=== PATIENT | female | born 1975 | race Caucasian/White ===

== ENCOUNTER 2016-09-29 14:13 | Emergency (ER) | payer OTHER ==
[~2016-09-29 14:13] MED LIST: ACET50TA PO; FOLI1TAB2 PO; IBUP80TA PO; IRON65TA PO; LABE10TAB PO; PRENTAB40 PO; ZANT1TAB PO; ZOLO50TA PO
== END 2016-09-29 16:50 | disposition left against medical advice (07) ==
LOC: M ED 14:13
DX: R10.9 Unspecified abdominal pain (principal); Z53.20 Procedure and treatment not carried out because of patient's decision for unspecified reasons

== ENCOUNTER 2017-01-06 09:00 | Emergency (ER) | payer OTHER ==
[~2017-01-06] VITALS: Ht 170.2 cm; Wt 63.5 kg
[2017-01-06] MEDS ORDERED: NORV5TAB PO (09:09)
[2017-01-06] MEDS ORDERED: PROP10TAB PO (09:10)
[2017-01-06] MEDS ORDERED: IBUPROFEN 600 MG TAB PO ONE (10:15)
[2017-01-06 10:56] VITALS: BP 119/76
[2017-01-06] MEDS ORDERED: VALI5TAB PO (10:56)
[2017-01-06] MEDS ORDERED: NAPR500T PO (10:56)
--- NOTE | 2017-01-06 15:10 | REP ---
RIGHT SHOULDER, THREE VIEWS: HISTORY: Pain. There is no acute fracture or dislocation. The joint spaces are normal in appearance. IMPRESSION: There is no acute fracture or dislocation. Signed by Faisal Ledezma MD 01/06/2017 02:16 P
== END 2017-01-06 11:05 | disposition home or self-care (01) ==
LOC: M ED 10:11
DX: S46.911A Strain of unspecified muscle, fascia and tendon at shoulder and upper arm level, right arm, initial encounter (principal); W18.09XA Striking against other object with subsequent fall, initial encounter; Y92.89 Other specified places as the place of occurrence of the external cause; Y93.89 Activity, other specified; Y99.8 Other external cause status; I10 Essential (primary) hypertension; F41.9 Anxiety disorder, unspecified; Z88.2 Allergy status to sulfonamides; Z88.8 Allergy status to other drugs, medicaments and biological substances; Z79.899 Other long term (current) drug therapy

== ENCOUNTER → 2017-04-09 | Outpatient (CLI) | payer OTHER ==
[~2017-04-09] MED LIST changes: +BENZ200C53 PO; +CEPA5.4L2 MT; +FLON1SPR; -FOLI1TAB2 PO; +FOLI1TAB4 PO; +LOTR52CA PO; +MUCI600T37 PO; +NAPR500T PO; +NORV5TAB PO; +PROP10TAB PO; +PROP40TA PO; +VALI5TAB PO; +ZOLO100T PO
--- NOTE | 2017-04-09 16:52 | REP ---
MAXILLOFACIAL CT WITHOUT CONTRAST: HISTORY: Chronic maxillary sinusitis. There is complete opacification of the left maxillary sinus. There is medial bowing of the left uncinate process. There is partial erosion of the left uncinate process. These findings may be to chronic sinusitis and or a mucocele. Moderate mucosal thickening is present in the left ethmoid and frontal sinuses. Minimal mucosal thickening is present in the right frontal ethmoid, maxillary, and left sphenoid sinuses. The right sphenoid sinus is clear. Mucosal thickening involves the left osteomeatal unit. The right osteomeatal unit is patent. The middle and inferior nasal turbinates are partially paradoxical. 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 There is minimal deviation of the nasal septum to the left anteriorly and to the right posteriorly. The spur is present arising from the left side of the nasal septum. The cribriform plate and medial krishnamurthy of the orbits and optic canals are intact. There is aeration of the anterior clinoid processes. The sphenoid sinus septum inserts into the right internal carotid canal wall. IMPRESSION: Sinus mucosal thickening as described above. Signed by Faisal Ledezma MD 04/09/2017 05:12 P
== END ==
LOC: M RAD 15:25
PROVIDERS: ATTEND Otolaryngology
DX: J32.0 Chronic maxillary sinusitis (principal)

== ENCOUNTER 2017-05-14 08:40 | Emergency (ER) | payer OTHER ==
[~2017-05-14] VITALS: Ht 170.2 cm; Wt 62.6 kg
[~2017-05-14 08:40] MED LIST changes: -BENZ200C53 PO; -CEPA5.4L2 MT; -FLON1SPR; -LOTR52CA PO; -MUCI600T37 PO; -PROP40TA PO; -ZOLO100T PO
[2017-05-14 09:55] LABS: BASO % 0.5 % (0.0-1.0); EOS # 0.2 K/mm3 (0.0-0.50); EOS % 1.9 % (0.0-3.0); LARGE UNSTAINED CELL # 0.1 K/mm3 (0.0-0.4); LARGE UNSTAINED CELL % 1.1 % (0.0-4.0); LYMPH # 1.6 K/mm3 (1.5-4.5); MEAN CORPUSCULAR HEMOGLOBIN 33.8 pg (27.0-33.0); MEAN CORPUSCULAR HGB CONC 34.7 g/dl (32.0-36.5); MEAN CORPUSCULAR VOLUME 97.4 fl (80.0-96.0); MONO # 0.4 K/mm3 (0.0-0.8); MONO % 4.8 % (0.0-5.0); NEUTROPHILS # 5.6 K/mm3 (1.8-7.7); NEUTROPHILS % 71.8 % (36.0-66.0); PLATELET COUNT, AUTOMATED 247 k/mm3 (150-450); RED CELL DISTRIBUTION WIDTH 12.2 % (11.5-14.5); WHITE BLOOD COUNT 7.8 K/mm3 (4.0-10.0)
--- NOTE | 2017-05-14 10:12 | REP ---
Clinical: Shortness of breath. Rule out pneumonia. Comparison: 09/04/2015. Findings: Mediastinum and cardiac silhouette are within normal limits and stable. Elevation and blunting to the right diaphragmatic surface is similar to prior examination and consistent with chronic changes. No obvious acute consolidation, effusion, or pneumothorax. Skeletal structures are intact. Impression: Chronic stable changes. No acute cardiopulmonary process appreciated. Signed by Francisco Bishop MD 05/14/2017 10:03 A
[2017-05-14 10:14] LABS: ALBUMIN 3.8 GM/DL (3.2-5.2); ALBUMIN/GLOBULIN RATIO 1.03 (1.00-1.93); ALKALINE PHOSPHATASE 122 U/L (45-117); ALT/SGPT 21 U/L (12-78); ANION GAP 8 MEQ/L (8-16); AST/SGOT 16 U/L (15-37); BILIRUBIN,TOTAL 0.4 MG/DL (0.2-1.0); BLOOD UREA NITROGEN 8 MG/DL (7-18); CALCIUM LEVEL 8.2 MG/DL (8.5-10.1); CARBON DIOXIDE LEVEL 26 MEQ/L (21-32); CHLORIDE LEVEL 104 MEQ/L (98-107); CREATININE FOR GFR 0.52 MG/DL (0.55-1.02); GLOMERULAR FILTRATION RATE > 60.0 (>60); GLUCOSE, FASTING 98 MG/DL (70-105); POTASSIUM SERUM 4.8 MEQ/L (3.5-5.1); SODIUM LEVEL 138 MEQ/L (136-145); TOTAL PROTEIN 7.5 GM/DL (6.4-8.2)
[2017-05-14] MEDS ORDERED: FLON1SPR (10:20)
[2017-05-14] MEDS ORDERED: BENZ200C53 PO (10:20)
[2017-05-14] MEDS ORDERED: MUCI600T37 PO (10:20)
[2017-05-14] MEDS ORDERED: CEPA5.4L2 MT (10:20)
[2017-05-14 10:28] VITALS: BP 116/79
[2017-06-27] MEDS ORDERED: ZOLO100T PO (14:47)
[2017-06-27] MEDS ORDERED: PROP40TA PO (14:47)
[2017-06-27] MEDS ORDERED: LOTR52CA PO (14:47)
== END 2017-05-14 10:41 | disposition home or self-care (01) ==
LOC: M ED 08:40
DX: J40 Bronchitis, not specified as acute or chronic (principal); J32.9 Chronic sinusitis, unspecified; Z79.899 Other long term (current) drug therapy; Z88.2 Allergy status to sulfonamides; Z88.8 Allergy status to other drugs, medicaments and biological substances

== ENCOUNTER → 2017-05-28 | Outpatient (REF) | payer OTHER ==
[~2017-05-28] MED LIST changes: +BENZ200C53 PO; +CEPA5.4L2 MT; +FLON1SPR; +LOTR52CA PO; +MUCI600T37 PO; +PROP40TA PO; +ZOLO100T PO
== END ==
LOC: M LAB REF 10:36
PROVIDERS: ATTEND Otolaryngology
DX: J32.1 Chronic frontal sinusitis (principal); J32.2 Chronic ethmoidal sinusitis

== ENCOUNTER 2017-07-02 08:51 | Day surgery (SDC) | payer OTHER ==
[~2017-07-02] VITALS: Ht 170.2 cm; Wt 62.6 kg
[2017-07-02] MEDS ORDERED: LR 1,000 ML IV SCH ×3 (09:00→14:15)
[2017-07-02] MEDS ORDERED: LIDOCAINE W/EPINEPHRINE 1% 20ML VIAL As Ordered ONE ×2 (09:53→11:58)
[2017-07-02] MEDS ORDERED: SODIUM CHLORIDE 0.9% NASAL GEL 15MG (AYR) As Ordered ONE (09:54)
[2017-07-02] MEDS ORDERED: EPINEPHrine 1MG/ML INJ 30ML MD-VIAL As Ordered ONE ×2 (09:54→12:01)
[2017-07-02] MEDS ORDERED: fentaNYL 100 MCG/2 ML INJECTION (J3010) As Ordered ONE ×3 (09:59→14:08)
[2017-07-02] MEDS ORDERED: PROPOFOL 200 MG/20 ML VIAL As Ordered ONE ×2 (09:59→12:32)
[2017-07-02] MEDS ORDERED: dexameTHASONE 4 MG/ML 1ML VIAL (J1100) As Ordered ONE (09:59)
[2017-07-02] MEDS ORDERED: ROCURONIUM BROMIDE 50 MG/5 ML VIAL/SYRINGE As Ordered ONE ×3 (09:59→13:12)
[2017-07-02] MEDS ORDERED: MIDAZOLAM INJ 2 MG/2 ML VIAL (J2250) As Ordered ONE (09:59)
[2017-07-02] MEDS ORDERED: METHYLENE BLUE 0.5% (5MG/ML) 10 ML AMP (PROVAYBLUE)(Q9968 PER 1MG) As Ordered ONE (10:17)
[2017-07-02] MEDS ORDERED: LABETALOL HCL 100 MG/20 ML VIAL As Ordered ONE (11:19)
[2017-07-02] MEDS ORDERED: HYDROmorphone HCL 2 MG/ML 1ML VIAL (J1170) As Ordered ONE (11:56)
[2017-07-02] MEDS ORDERED: REMIFENTANIL 1MG 3ML VIAL As Ordered ONE ×2 (12:58→12:59)
[2017-07-02] MEDS ORDERED: SUGAMMADEX SODIUM 500 MG/5 ML VIAL (BRIDION) As Ordered ONE (13:24)
[2017-07-02] MEDS ORDERED: PERCOCET 5MG/325MG TAB As Ordered ONE (14:08)
[2017-07-02] MEDS: fentaNYL 100 MCG/2 ML INJECTION (J3010) IV PRN ×7 (14:10→15:33)
[2017-07-02] MEDS ORDERED: ONDANSETRON 4MG/2ML VIAL (J2405) IV PRN (14:15)
[2017-07-02] MEDS ORDERED: MEPERIDINE INJ 25 MG/ML VIAL (J2175) IV PRN (14:15)
[2017-07-02] MEDS ORDERED: METOCLOPRAMIDE INJ 10MG/2ML VIAL (J2765) IV PRN (14:15)
[2017-07-02] MEDS: PERCOCET 5MG/325MG TAB PO PRN ×2 (14:29→15:09)
--- NOTE | 2017-07-02 14:44 | RO ---
DATE OF PROCEDURE: 07/02/2017 PREPROCEDURE DIAGNOSES: 1. Left chronic maxillary sinusitis. 2. Chronic left ethmoid sinusitis. 3. Chronic left frontal sinusitis. 4. Deviated nasal septum. POSTPROCEDURE DIAGNOSES: 1. Left chronic maxillary sinusitis. 2. Chronic left ethmoid sinusitis. 3. Chronic left frontal sinusitis. 4. Deviated nasal septum. PROCEDURE PERFORMED: 1. Endoscopic septoplasty. 2. Left maxillary antrostomy with irrigation, as well as balloon dilation. 3. Left anterior and posterior ethmoidectomy. 4. Left frontal sinusotomy. 5. Implantation of the Propel stent to the left osteomeatal complex. 6. resection of the left toma bullosa. SURGEON: Phan Cook MD INTERNET MARKETING ANALYST: ANESTHESIA: General. CLINICAL PREAMBLE: This 41-year-old woman presented to the office with a history of left sided facial pain and pressure sensation for several months, not responding to the medical therapy, including antibiotic and steroids. CT scan was completed and revealed sinusitis affecting the left paranasal sinuses. Management options, including the surgery listed above have been discussed. The patient understood and consented to the procedure. DESCRIPTION OF PROCEDURE: Patient was identified in preoperative holding and had the left face marked. She was brought to the operating room in stable condition. In supine position on the operating table, the patient received general anesthesia followed by orotracheal intubation without incident. Patient was prepped and draped in usual fashion for the procedure. Both eyes were lubricated and protected using Tegaderm. Pledgets soaked in 1:1000 epinephrine were used to pack each side of the nasal cavity. Deviated nasal septum into the left side was noted. The pledgets were removed. The left nasal septum was infiltrated with 1% lidocaine with 1:100,000 epinephrine. Using a sickle knife, the vertical incision was made over the prominent deviated portion of the nasal septum. Mucoperichondrial/mucoperiosteal flap was developed to isolate the deviated portion of the nasal septum. After resection of the deviated portion of the nasal septum, access to the left osteomeatal complex was much improved. Both sides of the nasal cavity were then inspected using a 0 degree nasal endoscope. The right paranasal sinuses and the nasal cavity were unremarkable. The toma bullosa was noted over the left middle nasal turbinate. The air pocket was then isolated and resected. Purulent discharge was noted to be coming out from the left maxillary antrum. Culture was obtained to be sent for culture and sensitivity and aerobic cultures. The left maxillary antrum was positively identified and a balloon catheter was inserted into the antrum. The illuminated guidewire was possibly illuminating the left maxillary sinus cavity. The balloon was then advanced into the maxillary antrum and then was inflated to 12 atmospheric pressure for 5 seconds. Irrigation was then performed to the left maxillary sinus. 180 mL of warm normal saline solution was used to irrigate the left maxillary sinus. At this time, the left frontal ethmoid air cells were identified and resected. Purulent discharge was noted to be coming from the left frontal recess region. The left ethmoid bullae was identified and resected. Polypoid degeneration was noted in the anterior ethmoid air cells, which were resected. The basal lamella was identified and penetrated. Diseased posterior ethmoid air cells were also resected. Hemostasis was achieved by the end of the procedure. The Propel stent was inserted to allow medialization of the left middle nasal turbinate against the nasal septum. No complications were encountered. Estimated blood loss was approximately 470 mL. At the end of procedure, sponge and instrument counts were correct. General anesthesia was reversed, and patient was extubated and brought to recovery room in stable condition. In the recovery area, patient exhibited full and symmetrical extraocular motion with no evidence of periorbital ecchymosis. MTDD
[2017-07-02 15:40] VITALS: BP 156/77
== END 2017-07-02 16:10 | disposition home or self-care (01) ==
LOC: M SDC 08:51
PROVIDERS: ATTEND Otolaryngology
DX: J34.2 Deviated nasal septum (principal); J32.0 Chronic maxillary sinusitis; J32.2 Chronic ethmoidal sinusitis; J32.1 Chronic frontal sinusitis; F32.9 Major depressive disorder, single episode, unspecified; T81.89XD Other complications of procedures, not elsewhere classified, subsequent encounter; I10 Essential (primary) hypertension; I34.1 Nonrheumatic mitral (valve) prolapse; M41.9 Scoliosis, unspecified; F41.9 Anxiety disorder, unspecified; G43.909 Migraine, unspecified, not intractable, without status migrainosus; Z88.1 Allergy status to other antibiotic agents; Z88.2 Allergy status to sulfonamides; Z79.899 Other long term (current) drug therapy; Z72.0 Tobacco use
CPT/HCPCS: 30520; 31240; 31255; 31276; 31295; 87070; 87075; 87076; 88300; 88305; 96374; 96375; C2625; J1100; J1170; J2250; J2405; J3010; Q9968

== ENCOUNTER 2017-10-16 13:33 | Emergency (ER) | payer OTHER | END 2017-10-16 17:48 | disposition home or self-care (01) | LOC: M ED 13:33 | DX: S60.222A Contusion of left hand, initial encounter (principal); S80.02XA Contusion of left knee, initial encounter; W19.XXXA Unspecified fall, initial encounter; Y92.59 Other trade areas as the place of occurrence of the external cause; K21.9 Gastro-esophageal reflux disease without esophagitis; F17.210 Nicotine dependence, cigarettes, uncomplicated; Z88.2 Allergy status to sulfonamides; Z88.1 Allergy status to other antibiotic agents; Z98.890 Other specified postprocedural states | CPT/HCPCS: 73564 ==

== ENCOUNTER 2017-11-15 07:36 | Emergency (ER) | payer OTHER | END 2017-11-15 09:12 | disposition home or self-care (01) | LOC: M ED 07:36 | DX: S90.32XA Contusion of left foot, initial encounter (principal); X58.XXXA Exposure to other specified factors, initial encounter; Y92.009 Unspecified place in unspecified non-institutional (private) residence as the place of occurrence of the external cause | CPT/HCPCS: 73630 ==

== ENCOUNTER → 2018-07-22 | Outpatient (CLI) | payer OTHER | LOC: M WUC 14:10 | DX: M25.521 Pain in right elbow (principal) | CPT/HCPCS: 73080 ==

== ENCOUNTER 2019-02-05 06:56 | Emergency (ER) | payer OTHER ==
[~2019-02-05] VITALS: Ht 170.2 cm; Wt 65.9 kg
[~2019-02-05 06:56] MED LIST changes: -ACET50TA PO; -BENZ200C53 PO; +BENZ200C70 PO; +FOLI1TAB11 PO; -FOLI1TAB4 PO; +LYRI75CA; +MAPA500T2 PO; +NAPR-837 PO; -NAPR500T PO; +PERC5TAB12; +PROP10TA55 PO; -PROP10TAB PO; -PROP40TA PO; +PROP40TA62 PO; +ZANT150T15 PO; -ZANT1TAB PO
[2019-02-05] MEDS ORDERED: NORCO, ANEXSIA 5/325MG TABLET (HYDROcodone/ACETAMINOPHEN) PO ONE (07:15)
[2019-02-05] MEDS ORDERED: KETOROLAC 30 MG/ML VIAL (J1885) As Ordered ONE (07:34)
[2019-02-05] MEDS ORDERED: KETOROLAC 60 MG/2 ML VIAL (J1885) IM ONE (07:45)
--- NOTE | 2019-02-05 08:08 | REP ---
On sonography: History: Possible migration of the IUD. Pelvic pain. Comparison pelvic sonography October 07, 2015. Sonographic findings: Transabdominal and transvaginal scanning are performed. Uterine dimensions are normal measured at 7.2 x 3.5 x 4.6 cm per endometrial echo 0.5 cm thick and centrally placed. IUD is noted in position in the uterine endometrium. No focal uterine mass is seen. There is 0.8 cm Nabothian cyst. Visualized bladder krishnamurthy are smooth. Normal size ovaries bilaterally. Right ovary measures 3.0 x 1.3 x 1.9 cm. Left ovarian dimensions are 3.1 x 1.6 x 2.5 cm. There is a 1.9 cm follicle in the left ovary. Doppler flow is normal bilaterally, resistive indices are 0.62 on the right and 0.56 on the left. Impression: IUD in place. Small Nabothian cyst. Otherwise unremarkable pelvic sonography. Electronically Signed by Zachariah Ayala MD 02/05/2019 08:00 A
[2019-02-05] MEDS ORDERED: NS 1,000 ML IV ONE (09:00)
[2019-02-05 09:16] LABS: BASO % 0.5 % (0.0-1.0); EOS # 0.2 10^3/uL (0.0-0.50); EOS % 2.7 % (0.0-3.0); HEMATOCRIT 40.4 % (36.0-47.0); LYMPH # 2.2 10^3/uL (1.5-4.5); LYMPH % 29.5 % (24.0-44.0); MEAN CORPUSCULAR HEMOGLOBIN 32.7 pg (27.0-33.0); MEAN CORPUSCULAR HGB CONC 34.7 g/dl (32.0-36.5); MEAN CORPUSCULAR VOLUME 94.4 fl (80.0-96.0); MONO # 0.5 10^3/uL (0.0-0.8); MONO % 6.9 % (0.0-5.0); NEUTROPHILS # 4.4 10^3/uL (1.8-7.7); NEUTROPHILS % 60.1 % (36.0-66.0); PLATELET COUNT, AUTOMATED 226 10^3/uL (150-450); RED BLOOD COUNT 4.28 10^6/uL (4.00-5.40); WHITE BLOOD COUNT 7.4 10^3/uL (4.0-10.0)
[2019-02-05 09:37] LABS: ALBUMIN 3.9 GM/DL (3.2-5.2); ALT/SGPT 22 U/L (12-78); BILIRUBIN,DIRECT 0.1 MG/DL (0.0-0.2); BILIRUBIN,TOTAL 0.4 MG/DL (0.2-1.0); BLOOD UREA NITROGEN 11 MG/DL (7-18); CALCIUM LEVEL 9.3 MG/DL (8.5-10.1); CARBON DIOXIDE LEVEL 24 MEQ/L (21-32); CHLORIDE LEVEL 110 MEQ/L (98-107); GLOMERULAR FILTRATION RATE > 60.0 (>58); GLUCOSE, FASTING 109 MG/DL (70-100); POTASSIUM SERUM 4.3 MEQ/L (3.5-5.1); SODIUM LEVEL 140 MEQ/L (136-145); TOTAL PROTEIN 7.1 GM/DL (6.4-8.2)
[2019-02-05] MEDS ORDERED: ISOVUE-370 76% 100ML VIAL (Q9967) As Ordered ONE (10:10)
[2019-02-05 10:44] VITALS: BP 147/72
[2019-02-05] MEDS ORDERED: IBUP-1022 PO (10:59)
--- NOTE | 2019-02-05 11:08 | REP ---
CT abdomen and pelvis with IV but without oral contrast: History: Lower abdominal and pelvic pain with guarding. Comparison CT study is from December 01, 2011. CT contrast dose: 100 mL of intravenous Isovue [address] findings: Preliminary digital film color tester radiograph demonstrates an unremarkable bowel gas pattern. There is mild pleuroparenchymal fibrosis in the right lung base. The lung bases are otherwise clear on axial CT images. The liver shows mild diffuse fatty infiltration but is normal in size and homogeneous in texture. The spleen is unremarkable. No adrenal lesion is seen on either side. No abnormality is noted in the pancreas. The gallbladder has a somewhat contracted appearance with mild gallbladder wall enhancement. A normal retrocecal appendix is seen in the right mid abdomen. The kidneys enhance symmetrically. There is an upper pole calculus in the left kidney 4 mm in diameter. There is no evidence of hydronephrosis on either side. No retroperitoneal mass or adenopathy is observed. Normal caliber aorta is seen. An IUD is seen within the uterus. The uterus is tipped somewhat to the left. No ovarian mass or cyst is seen. No free fluid is noted in the pelvis. Small and large bowel loops are normal in the pelvis. No evidence of free air. No abdominal wall defect is seen. Bone window settings show no bony destructive lesion. Impression: There is an intrarenal calculus in the upper pole of the left kidney without hydronephrosis. Mild diffuse fatty infiltration is seen in the liver. Normal appendix is noted. IUD is present in the uterus which is tipped somewhat to the left. No other abnormalities seen. Electronically Signed by Zachariah Ayala MD 02/05/2019 12:34 P
== END 2019-02-05 11:34 | disposition home or self-care (01) ==
LOC: M ED 06:56
DX: N20.0 Calculus of kidney (principal); K76.0 Fatty (change of) liver, not elsewhere classified; N88.8 Other specified noninflammatory disorders of cervix uteri; R10.2 Pelvic and perineal pain; I10 Essential (primary) hypertension; F41.9 Anxiety disorder, unspecified; Z97.5 Presence of (intrauterine) contraceptive device; Z88.1 Allergy status to other antibiotic agents; Z88.2 Allergy status to sulfonamides; Z79.899 Other long term (current) drug therapy
CPT/HCPCS: 74177; 76830; 76856; 80048; 80076; 81001; 84702; 85025; 93976; 96360; 96361; 96372; 99284; J1885; Q9967

== ENCOUNTER 2019-12-13 07:52 | Emergency (ER) | payer OTHER, SELFPAY ==
[~2019-12-13] VITALS: Ht 170.2 cm; Wt 71.4 kg
[~2019-12-13 07:52] MED LIST changes: +IBUP-1022 PO
[2019-12-13] MEDS ORDERED: PREG100C (08:09)
[2019-12-13] MEDS ORDERED: FLUORESCEIN OPHTH 1 MG STRIP OD ONE (08:45)
[2019-12-13] MEDS ORDERED: TETRACAINE 0.5% OPHTH SOLN 4ML OD ONE (08:45)
[2019-12-13] MEDS ORDERED: ISOVUE-370 76% 100ML VIAL (Q9967) As Ordered ONE (09:20)
[2019-12-13 10:01] LABS: BASO # 0.1 10^3/uL (0.0-0.2); BASO % 0.8 % (0.0-1.0); EOS # 0.2 10^3/uL (0.0-0.5); EOS % 2.7 % (0.0-3.0); HEMATOCRIT 40.5 % (36.0-47.0); HEMOGLOBIN 13.5 g/dl (12.0-15.5); LYMPH # 2.4 10^3/uL (1.5-5.0); LYMPH % 33.6 % (24.0-44.0); MEAN CORPUSCULAR HEMOGLOBIN 32.3 pg (27.0-33.0); MEAN CORPUSCULAR HGB CONC 33.3 g/dl (32.0-36.5); MEAN CORPUSCULAR VOLUME 96.9 fl (80.0-96.0); MONO # 0.6 10^3/uL (0.0-0.8); MONO % 8.5 % (0.0-5.0); NEUTROPHILS # 3.8 10^3/uL (1.5-8.5); NEUTROPHILS % 54.3 % (36.0-66.0); PLATELET COUNT, AUTOMATED 223 10^3/uL (150-450); RED BLOOD COUNT 4.18 10^6/uL (4.00-5.40); WHITE BLOOD COUNT 7.1 10^3/uL (4.0-10.0)
[2019-12-13 11:16] VITALS: BP 145/84
[2019-12-13] MEDS ORDERED: OCUF0.25 OD (11:18)
--- NOTE | 2019-12-13 11:21 | REP ---
CT ORBITS WITH IV CONTRAST: CT orbits performed following the intravenous administration of 75 mL of Isovue 370. Sagittal and coronal reconstruction images are performed. Globes are intact. Extraocular muscles are normal in appearance with no thickening. There is no intraocular mass. No orbital mass or inflammation is seen. There is no fluid collection. Visualized osseous structures are intact. There is moderate diffuse opacification of bilateral ethmoid air cells consistent with a moderate degree of ethmoid sinusitis. There is mild posterior mucosal thickening in the sphenoid sinus. There is mild mucosal thickening posteriorly in the right maxillary sinus. There is mild mucosal thickening in the frontoethmoidal recesses. Mastoid air cells are well aerated with no abnormal opacification. IMPRESSION: Normal appearance of the orbits. There is moderate ethmoid sinusitis with mild mucosal thickening in the sphenoid, right maxillary sinuses as well as frontoethmoidal recesses. Electronically Signed by Axel Fergsuon MD 12/13/2019 12:47 P
== END 2019-12-13 11:30 | disposition home or self-care (01) ==
LOC: M ED 07:52
DX: H10.31 Unspecified acute conjunctivitis, right eye (principal); I10 Essential (primary) hypertension; K21.9 Gastro-esophageal reflux disease without esophagitis; F41.9 Anxiety disorder, unspecified; F17.200 Nicotine dependence, unspecified, uncomplicated; Z88.2 Allergy status to sulfonamides; Z79.899 Other long term (current) drug therapy
CPT/HCPCS: 70481; 80047; 84702; 85025; 99284; Q9967

== ENCOUNTER 2020-02-22 17:39 | Emergency (ER) | payer OTHER ==
[~2020-02-22] VITALS: Ht 170.2 cm; Wt 71.8 kg
[2020-02-22 17:39] VITALS: BP 143/78
[~2020-02-22 17:39] MED LIST changes: +OCUF0.25 OD; +PREG100C
[2020-02-22] MEDS ORDERED: MIRE1IUD IU (17:52)
--- NOTE | 2020-02-23 06:58 | REP ---
Clinical: Trauma. Sprain. . Technique: AP, lateral, bilateral oblique views left ankle. Findings: No acute fracture or dislocation. Skeletal structures and joint spaces are intact and normal. Ankle mortise appears stable. No subcutaneous emphysema or radiodense foreign body. Impression: Normal left ankle radiograph series. No acute fracture or dislocation. Electronically Signed by Francisco Bishop MD 02/23/2020 06:49 A
== END 2020-02-22 18:52 | disposition home or self-care (01) ==
LOC: M ED 17:39
DX: S93.402A Sprain of unspecified ligament of left ankle, initial encounter (principal); X50.1XXA Overexertion from prolonged static or awkward postures, initial encounter; Y92.009 Unspecified place in unspecified non-institutional (private) residence as the place of occurrence of the external cause; I10 Essential (primary) hypertension; F17.210 Nicotine dependence, cigarettes, uncomplicated; K21.9 Gastro-esophageal reflux disease without esophagitis; F41.9 Anxiety disorder, unspecified; Z88.2 Allergy status to sulfonamides; Z88.8 Allergy status to other drugs, medicaments and biological substances; Z79.899 Other long term (current) drug therapy

== ENCOUNTER 2020-10-18 13:34 | Emergency (ER) | payer OTHER ==
[~2020-10-18] VITALS: Ht 170.2 cm; Wt 68.0 kg
[2020-10-18 13:34] VITALS: BP 131/87
[~2020-10-18 13:34] MED LIST changes: +LABE100T4 PO; -LABE10TAB PO; +MIRE1IUD IU
--- NOTE | 2020-10-18 14:19 | REP ---
INDICATION: TRAUMA COMPARISON: None. TECHNIQUE: Frontal view of the pelvis with neutral and frog lateral views of the left hip. FINDINGS: Osseous structures and joint spaces are intact and normal. Hip joints appear symmetric on frontal pelvic radiograph. No acute fracture or dislocation. Surrounding soft tissues are unremarkable. IMPRESSION: Normal pelvis and left hip series. No acute fracture or dislocation. <Electronically signed by Francisco Bishop > 10/18/20 [id number]
--- NOTE | 2020-10-18 14:21 | REP ---
INDICATION: TRAUMA COMPARISON: None. TECHNIQUE: AP, lateral, bilateral oblique, and coned-down views of the lumbar spine. FINDINGS: Alignment and lordosis maintained. Vertebral bodies are intact. Disc spaces are relatively normal/age-appropriate. No acute fracture/compression injury or subluxation. No obvious spondylolysis or spondylolisthesis.. IMPRESSION: Normal Lumbosacral Spine series. No acute fracture/compression injury or subluxation. <Electronically signed by Francisco Bishop > 10/18/20 [id number]
== END 2020-10-18 14:10 | disposition left against medical advice (07) ==
LOC: M ED 13:34
DX: Z53.21 Procedure and treatment not carried out due to patient leaving prior to being seen by health care provider (principal)

== ENCOUNTER 2021-06-21 12:04 | Emergency (ER) | payer OTHER ==
[~2021-06-21] VITALS: Ht 170.2 cm; Wt 62.0 kg
[2021-06-21 12:05] VITALS: BP 181/95
--- NOTE | 2021-06-21 21:56 | ECGEPIP ---
[facility] - ED Test Date: 2021-06-21 Pat Name: ASHELY CORNEJO Department: Room: - Gender: Female Recruiter Manager: WILFREDO : [id number] Requested By: EDWARD Gatn Order Number: [id number] Reading MD: Edward Treadwell Measurements Intervals [place] Rate: 91 P: 57 TX: 126 QRS: 68 QRSD: 78 T: 39 QT: 382 QTc: 469 Interpretive Statements Normal sinus rhythm Possible Left atrial enlargement Baseline artifact Similar to tracing done 09-04-15 Electronically Signed on 06-21-2021 21:56:02 EDT by Edward Treadwell
== END 2021-06-21 15:03 | disposition left against medical advice (07) ==
LOC: M ED 12:04
DX: Z53.21 Procedure and treatment not carried out due to patient leaving prior to being seen by health care provider (principal)

== ENCOUNTER → 2021-08-19 | Outpatient (REF) | LOC: M LABSMTC 09:24 | PROVIDERS: ATTEND Pediatrics | DX: Z11.52 Encounter for screening for COVID-19 (principal) ==

== ENCOUNTER → 2021-10-17 | Outpatient (CLI) | payer OTHER, SELFPAY | LOC: M RAD 16:42 | PROVIDERS: ATTEND Family Medicine | DX: R05.9 Cough, unspecified (principal); Z87.891 Personal history of nicotine dependence; Z09 Encounter for follow-up examination after completed treatment for conditions other than malignant neoplasm ==

== ENCOUNTER → 2021-12-20 | Outpatient (CLI) | payer BC | LOC: M RAD 12:05 | PROVIDERS: ATTEND Nurse Practitioner Family | DX: R60.0 Localized edema (principal) ==

== ENCOUNTER → 2022-09-18 | Outpatient (REF) | payer BC ==
[~2022-09-18] MED LIST changes: -LABE100T4 PO; +LABE100T6 PO
[2022-09-18 14:49] LABS: APPEARANCE, URINE MANUAL CLEAR (CLEAR); COLOR, URINE MANUAL YELLOW (YELLOW)
[2022-09-18 14:50] LABS: BILIRUBIN, URINE MANUAL NEGATIVE (NEGATIVE); BLOOD URINE MANUAL TRACE (NEGATIVE); GLUCOSE, URINE (UA) MANUAL NEGATIVE (NEGATIVE); KETONE, URINE MANUAL NEGATIVE (NEGATIVE); LEUKOCYTE ESTERASE, URINE MAN NEGATIVE (NEGATIVE); NITRITE, URINE MANUAL NEGATIVE (NEGATIVE); PH,URINE MAN 5.5 UNITS (5.0 - 7.0); PROTEIN, URINE MANUAL NEGATIVE (NEGATIVE); SPECIFIC GRAVITY,URINE MANUAL 1.015 (1.002-1.035); UROBILINOGEN, URINE MANUAL NORMAL (NORMAL)
[2022-09-18 15:09] LABS: BACTERIA, URINE SMALL AMOUNT; HYALINE CAST, URINE NONE SEEN /lpf (0-1); MUCUS, URINE MOD AMOUNT (NEGATIVE); SQUAMOUS EPITHELIAL CELL URINE SMALL AMOUNT /hpf (SMALL AMT); WBC, URINE 0-1 /hpf (0-3)
[2022-09-18 16:15] LABS: CREATININE,RANDOM URINE 78.1 MG/DL
[2022-09-18 16:20] LABS: C REACTIVE PROTEIN QUANTITATIV < 0.40 MG/DL (<1.0)
[2022-09-18 16:21] LABS: COMPLEMENT C3 118.9 MG/DL (90.0-170.0); COMPLEMENT C4 25.2 MG/DL (12-36)
[2022-09-18 16:35] LABS: HEPATITIS B SURFACE ANTIGEN NEGATIVE (NEGATIVE)
[2022-09-18 16:54] LABS: HEPATITIS C VIRUS ABY INDEX 0.1 INDEX (<0.8)
[2022-09-18 17:51] LABS: HEPATITIS B SURFACE ANTIBODY NEGATIVE (POSITIVE)
== END ==
LOC: M SFHCRHEU 10:34
PROVIDERS: ATTEND Internal Medicine
DX: M06.4 Inflammatory polyarthropathy (principal); R76.8 Other specified abnormal immunological findings in serum

== ENCOUNTER → 2022-10-27 | Outpatient (CLI) | payer BC | LOC: M LAB 11:09 | PROVIDERS: ATTEND Internal Medicine | DX: M06.4 Inflammatory polyarthropathy (principal) ==

== ENCOUNTER → 2022-12-19 | Outpatient (REF) | payer BC ==
[2022-12-19 13:53] LABS: BASO # 0.1 10^3/uL (0.0-0.2); BASO % 0.4 % (0.0-1.0); EOS # 0.1 10^3/uL (0.0-0.5); EOS % 0.5 % (0.0-3.0); HEMOGLOBIN 14.7 g/dl (12.0-15.5); LYMPH # 1.5 10^3/uL (1.5-5.0); LYMPH % 10.8 % (24.0-44.0); MEAN CORPUSCULAR HEMOGLOBIN 32.1 pg (27.0-33.0); MEAN CORPUSCULAR HGB CONC 33.4 g/dl (32.0-36.5); MEAN CORPUSCULAR VOLUME 96.1 fl (80.0-96.0); MONO # 0.5 10^3/uL (0.0-0.8); MONO % 3.9 % (2.0-8.0); NEUTROPHILS # 11.3 10^3/uL (1.5-8.5); NEUTROPHILS % 84.1 % (36.0-66.0); PLATELET COUNT, AUTOMATED 285 10^3/uL (150-450); RED BLOOD COUNT 4.58 10^6/uL (4.00-5.40); WHITE BLOOD COUNT 13.5 10^3/uL (4.0-10.0)
[2022-12-19 14:06] LABS: ERYTHROCYTE SEDIMENTATION RATE 49 mm/hr (0-20)
[2022-12-19 14:17] LABS: C REACTIVE PROTEIN QUANTITATIV < 0.40 MG/DL (<1.0)
[2022-12-19 14:18] LABS: ALBUMIN 4.1 G/DL (3.2-5.2); ALKALINE PHOSPHATASE 89 U/L (46-116); ALT/SGPT 18 U/L (7.0-40); AST/SGOT 18 U/L (<34); BILIRUBIN,DIRECT 0.1 MG/DL (<0.4); BILIRUBIN,TOTAL 0.5 MG/DL (0.3-1.2); BLOOD UREA NITROGEN 9 MG/DL (9-23); CALCIUM LEVEL 9.4 MG/DL (8.5-10.1); CARBON DIOXIDE LEVEL 25 MMOL/L (20-31); CHLORIDE LEVEL 102 MMOL/L (98-107); GLOMERULAR FILTRATION RATE > 60.0 (>58); GLUCOSE, FASTING 98 MG/DL (60-100); POTASSIUM SERUM 4.7 MMOL/L (3.5-5.1); SODIUM LEVEL 135 MMOL/L (136-145); TOTAL PROTEIN 7.7 G/DL (5.7-8.2)
== END ==
LOC: M SFHCRHEU 11:07
PROVIDERS: ATTEND Internal Medicine
DX: M05.79 Rheumatoid arthritis with rheumatoid factor of multiple sites without organ or systems involvement (principal)

== ENCOUNTER → 2023-01-03 | Outpatient (CLI) | payer BC | LOC: M RAD 12:28 | PROVIDERS: ATTEND Internal Medicine | DX: M06.4 Inflammatory polyarthropathy (principal) ==

== ENCOUNTER 2023-02-09 08:24 | Emergency (ER) | payer BC ==
[~2023-02-09] VITALS: Ht 170.2 cm; Wt 63.1 kg
[2023-02-09] MEDS ORDERED: ABIL10TA9 PO (08:36)
[2023-02-09] MEDS ORDERED: FOLI1TAB11 PO (08:36)
[2023-02-09] MEDS ORDERED: LOTR52CA PO (08:38)
[2023-02-09] MEDS ORDERED: METH2.5T48 PO (08:38)
[2023-02-09] MEDS ORDERED: OXYC5SOL11 PO (08:40)
[2023-02-09] MEDS ORDERED: PROPARACAINE 0.5% OPHTH SOL 15ML XX ONE (08:45)
[2023-02-09] MEDS ORDERED: FLUORESCEIN OPHTH 1MG STRIP XX ONE (08:45)
[2023-02-09] MEDS ORDERED: CEPH500C PO (09:50)
[2023-02-09] MEDS ORDERED: OCUF0.25 OS (09:53)
[2023-02-09 10:03] VITALS: BP 126/81
== END 2023-02-09 10:10 | disposition home or self-care (01) ==
LOC: M ED 08:24
DX: S05.02XA Injury of conjunctiva and corneal abrasion without foreign body, left eye, initial encounter (principal); H10.32 Unspecified acute conjunctivitis, left eye; X58.XXXA Exposure to other specified factors, initial encounter; Y92.89 Other specified places as the place of occurrence of the external cause; I10 Essential (primary) hypertension; F17.210 Nicotine dependence, cigarettes, uncomplicated; Z88.2 Allergy status to sulfonamides; Z79.899 Other long term (current) drug therapy

== ENCOUNTER 2023-05-04 08:51 | Emergency (ER) | payer BC ==
[~2023-05-04] VITALS: Ht 170.2 cm; Wt 85.6 kg
[~2023-05-04 08:51] MED LIST changes: +ABIL10TA9 PO; +CEPH500C PO; +METH2.5T48 PO; +OCUF0.25 OS; +OXYC5SOL11 PO
[2023-05-04] MEDS ORDERED: IBUP200C25 PO (09:23)
[2023-05-04] MEDS ORDERED: NABU-71 (09:23)
[2023-05-04] MEDS ORDERED: ACET-683 PO (09:23)
[2023-05-04] MEDS ORDERED: NORCO, ANEXSIA 5/325MG TABLET (HYDROcodone/ACETAMINOPHEN) PO ONE (10:25)
[2023-05-04] MEDS ORDERED: HYDR-3713 PO (10:47)
[2023-05-04 10:57] VITALS: BP 125/82; TEMP 98.6; O2SAT 99
== END 2023-05-04 10:58 | disposition home or self-care (01) ==
LOC: M ED 08:51
DX: S86.002A Unspecified injury of left Achilles tendon, initial encounter (principal); X58.XXXA Exposure to other specified factors, initial encounter; I10 Essential (primary) hypertension; K21.9 Gastro-esophageal reflux disease without esophagitis; F32.A Depression, unspecified; F41.9 Anxiety disorder, unspecified; F17.200 Nicotine dependence, unspecified, uncomplicated; Z88.2 Allergy status to sulfonamides; Z88.8 Allergy status to other drugs, medicaments and biological substances; Z79.899 Other long term (current) drug therapy

== ENCOUNTER → 2023-05-15 | Outpatient (REF) ==
[~2023-05-15] MED LIST changes: +ACET-683 PO; +HYDR-3713 PO; +IBUP200C25 PO; +NABU-71
== END ==
LOC: M LAB 13:57
PROVIDERS: ATTEND Nurse Practitioner Adult Health
DX: Z00.00 Encounter for general adult medical examination without abnormal findings (principal)

== ENCOUNTER → 2023-05-24 | Outpatient (CLI) | payer BC ==
[~2023-05-24] MED LIST changes: -PREG100C; +PREG100C2
== END ==
LOC: M SOG 08:03
PROVIDERS: ATTEND Orthopaedic Surgery
DX: M25.571 Pain in right ankle and joints of right foot (principal)

== ENCOUNTER → 2023-05-24 | Outpatient (CLI) | payer BC | LOC: M SOG 07:59 | PROVIDERS: ATTEND Orthopaedic Surgery | DX: M25.571 Pain in right ankle and joints of right foot (principal); Z53.9 Procedure and treatment not carried out, unspecified reason ==

== ENCOUNTER 2023-07-06 13:32 | Emergency (ER) | payer BC ==
[~2023-07-06] VITALS: Ht 170.2 cm; Wt 63.1 kg
[2023-07-06] MEDS ORDERED: KETOROLAC 30 MG/ML 1ML VIAL IV ONE (16:35)
[2023-07-06 17:14] LABS: BASO # 0.1 10^3/uL (0.0-0.2); BASO % 0.7 % (0.0-1.0); EOS # 0.1 10^3/uL (0.0-0.5); EOS % 1.5 % (0.0-3.0); HEMATOCRIT 39.4 % (36.0-47.0); HEMOGLOBIN 13.5 g/dl (12.0-15.5); LYMPH # 2.8 10^3/uL (1.5-5.0); LYMPH % 36.7 % (24.0-44.0); MEAN CORPUSCULAR HEMOGLOBIN 32.6 pg (27.0-33.0); MEAN CORPUSCULAR HGB CONC 34.3 g/dl (32.0-36.5); MEAN CORPUSCULAR VOLUME 95.2 fl (80.0-96.0); MONO # 0.7 10^3/uL (0.0-0.8); MONO % 9.3 % (2.0-8.0); NEUTROPHILS # 3.9 10^3/uL (1.5-8.5); NEUTROPHILS % 51.7 % (36.0-66.0); PLATELET COUNT, AUTOMATED 178 10^3/uL (150-450); RED BLOOD COUNT 4.14 10^6/uL (4.00-5.40); WHITE BLOOD COUNT 7.5 10^3/uL (4.0-10.0)
[2023-07-06 17:32] LABS: LIPASE 40 U/L (12-53)
[2023-07-06 17:33] LABS: CK-MB VALUE MASS < 1.0 NG/ML (<3.6)
[2023-07-06 17:34] LABS: CPK CREATINE PHOSPHOKINASE 28 U/L (34-145); MB/CK RELATIVE INDEX 3.57 (< OR =4)
[2023-07-06 17:35] LABS: ALBUMIN 3.6 G/DL (3.2-5.2); ALKALINE PHOSPHATASE 117 U/L (46-116); ALT/SGPT 24 U/L (7.0-40); AST/SGOT 20 U/L (<34); BILIRUBIN,DIRECT 0.1 MG/DL (<0.4); BILIRUBIN,TOTAL 0.3 MG/DL (0.3-1.2); TOTAL PROTEIN 6.8 G/DL (5.7-8.2)
[2023-07-06] MEDS ORDERED: ISOVUE-370 76% 100ML VIAL As Ordered ONE (17:48)
[2023-07-06] MEDS ORDERED: MORPHINE 4 MG/ML 1ML VIAL IV ONE (18:10)
[2023-07-06] MEDS ORDERED: ONDANSETRON 4MG 2ML VIAL IV ONE (18:10)
[2023-07-06] MEDS ORDERED: KETO10TAB PO (20:01)
[2023-07-06 20:10] VITALS: BP 149/72; TEMP 97.5; O2SAT 96
== END 2023-07-06 20:19 | disposition home or self-care (01) ==
LOC: M ED 13:32
DX: R10.11 Right upper quadrant pain (principal); N32.89 Other specified disorders of bladder; I10 Essential (primary) hypertension; Z86.79 Personal history of other diseases of the circulatory system; Z87.01 Personal history of pneumonia (recurrent); Z97.5 Presence of (intrauterine) contraceptive device; F17.200 Nicotine dependence, unspecified, uncomplicated; Z79.899 Other long term (current) drug therapy; Z88.2 Allergy status to sulfonamides
CPT/HCPCS: 71046; 71275; 74177; 76705; 80047; 80076; 81001; 82550; 82553; 83605; 83690; 85025; 85379; 87086; 93005; 93041; 96374; 96375; 99284; J1885; J2405; Q9967

== ENCOUNTER → 2023-08-29 | Outpatient (REF) | payer BC ==
[~2023-08-29] MED LIST changes: +KETO10TAB PO
== END ==
LOC: M SFHCWAGY 10:58
PROVIDERS: ATTEND Nurse Practitioner Family
DX: Z12.4 Encounter for screening for malignant neoplasm of cervix (principal)

== ENCOUNTER → 2023-09-12 | Outpatient (REF) | payer BC | LOC: M PLALAB 13:38 | PROVIDERS: ATTEND Advanced Practice Midwife | DX: A63.0 Anogenital (venereal) warts (principal) ==

== ENCOUNTER → 2024-02-08 | Outpatient (CLI) | payer BC ==
[2024-02-08 12:40] LABS: HEMATOCRIT 41.4 % (36.0-47.0); HEMOGLOBIN 14.2 g/dl (12.0-15.5); MEAN CORPUSCULAR HEMOGLOBIN 32.9 pg (27.0-33.0); MEAN CORPUSCULAR HGB CONC 34.3 g/dl (32.0-36.5); MEAN CORPUSCULAR VOLUME 95.8 fl (80.0-96.0); PLATELET COUNT, AUTOMATED 245 10^3/uL (150-450); RED BLOOD COUNT 4.32 10^6/uL (4.00-5.40); WHITE BLOOD COUNT 7.6 10^3/uL (4.0-10.0)
[2024-02-08 13:08] LABS: ALBUMIN 3.9 G/DL (3.2-5.2); ALKALINE PHOSPHATASE 118 U/L (46-116); ALT/SGPT 19 U/L (7.0-40); AST/SGOT 19 U/L (<34); BILIRUBIN,TOTAL 0.5 MG/DL (0.3-1.2); BLOOD UREA NITROGEN 6 MG/DL (9-23); CALCIUM LEVEL 9.1 MG/DL (8.5-10.1); CARBON DIOXIDE LEVEL 26 MMOL/L (20-31); CHLORIDE LEVEL 99 MMOL/L (98-107); CHOLESTEROL LEVEL 194 MG/DL (<200); CHOLESTEROL RISK RATIO 1.72 (<5); CREATININE FOR GFR 0.51 MG/DL (0.55-1.30); GLOMERULAR FILTRATION RATE > 60.0 (>58); GLUCOSE, FASTING 107 MG/DL (60-100); HDL CHOLESTEROL 112.4 MG/DL (>40); LDL CHOLESTEROL 67.8 MG/DL (<100); NON-HDL-C 81.6 MG/DL; POTASSIUM SERUM 4.5 MMOL/L (3.5-5.1); SODIUM LEVEL 132 MMOL/L (136-145); TOTAL PROTEIN 7.4 G/DL (5.7-8.2); TRIGLYCERIDES LEVEL 69 MG/DL (<150)
[2024-02-08 13:11] LABS: TOTAL 25(OH) VITAMIN D 9.2 NG/ML (20.0-100.0)
[2024-02-08 13:12] LABS: THYROID STIMULATING HORMONE 0.979 uIU/ML (0.55-4.78)
== END ==
LOC: M PLALAB 09:59
PROVIDERS: ATTEND Physician Assistant
DX: Z79.891 Long term (current) use of opiate analgesic (principal)

== ENCOUNTER → 2024-02-28 | Outpatient (CLI) | payer BC ==
[~2024-02-28] MED LIST changes: +PROHANCE 279.3MG/ML 15ML VIAL ONE
== END ==
LOC: M PLAIMG 07:37
PROVIDERS: ATTEND Nurse Practitioner Family
DX: Z91.89 Other specified personal risk factors, not elsewhere classified (principal); Z80.3 Family history of malignant neoplasm of breast

== ENCOUNTER 2024-03-06 19:04 | Emergency (ER) | payer BC ==
[~2024-03-06] VITALS: Ht 170.2 cm; Wt 64.5 kg
[~2024-03-06 19:04] MED LIST changes: -PROHANCE 279.3MG/ML 15ML VIAL ONE
[2024-03-06 20:23] VITALS: TEMP 98
[2024-03-06] MEDS: methylPREDNISolone 125MG 2ML VIAL IV ONE (20:47)
[2024-03-06 20:52] LABS: BASO % 0.5 % (0.0-1.0); EOS # 0.2 10^3/uL (0.0-0.5); EOS % 2.4 % (0.0-3.0); HEMATOCRIT 38.8 % (36.0-47.0); HEMOGLOBIN 13.7 g/dl (12.0-15.5); LYMPH # 2.5 10^3/uL (1.5-5.0); LYMPH % 32.8 % (24.0-44.0); MEAN CORPUSCULAR HEMOGLOBIN 33.3 pg (27.0-33.0); MEAN CORPUSCULAR HGB CONC 35.3 g/dl (32.0-36.5); MEAN CORPUSCULAR VOLUME 94.4 fl (80.0-96.0); MONO # 0.6 10^3/uL (0.0-0.8); MONO % 8.3 % (2.0-8.0); NEUTROPHILS # 4.2 10^3/uL (1.5-8.5); NEUTROPHILS % 55.7 % (36.0-66.0); PLATELET COUNT, AUTOMATED 208 10^3/uL (150-450); RED BLOOD COUNT 4.11 10^6/uL (4.00-5.40); WHITE BLOOD COUNT 7.6 10^3/uL (4.0-10.0)
[2024-03-06 21:30] VITALS: BP 150/96; O2SAT 98
[2024-03-06] MEDS: methocarbamoL 500 MG TAB PO ONE (23:04)
[2024-03-06] MEDS ORDERED: IBUP-1022 PO (23:15)
[2024-03-06] MEDS ORDERED: PRED20TA PO (23:15)
[2024-03-06] MEDS ORDERED: METH-1164 PO (23:15)
[2024-03-06] MEDS: KETOROLAC 30 MG/ML 1ML VIAL IV ONE (23:25)
== END 2024-03-06 23:26 | disposition home or self-care (01) ==
LOC: M ED 19:04
DX: M62.838 Other muscle spasm (principal); I10 Essential (primary) hypertension; K21.9 Gastro-esophageal reflux disease without esophagitis; F17.200 Nicotine dependence, unspecified, uncomplicated; Z88.2 Allergy status to sulfonamides; Z88.8 Allergy status to other drugs, medicaments and biological substances; Z79.1 Long term (current) use of non-steroidal anti-inflammatories (NSAID); Z79.52 Long term (current) use of systemic steroids; Z79.899 Other long term (current) drug therapy
CPT/HCPCS: 70450; 72125; 80047; 85025; 96374; 96375; 99284; J1885; J2919

== ENCOUNTER → 2024-04-16 | Outpatient (CLI) | payer BC ==
[~2024-04-16] MED LIST changes: +METH-1164 PO; +PRED20TA PO
== END ==
LOC: M PAIN 08:30
PROVIDERS: ATTEND Anesthesiology
DX: M54.2 Cervicalgia (principal); M47.812 Spondylosis without myelopathy or radiculopathy, cervical region; M25.511 Pain in right shoulder; M19.011 Primary osteoarthritis, right shoulder; M54.50 Low back pain, unspecified; M79.10 Myalgia, unspecified site; M79.18 Myalgia, other site; M05.79 Rheumatoid arthritis with rheumatoid factor of multiple sites without organ or systems involvement; F41.1 Generalized anxiety disorder; M47.814 Spondylosis without myelopathy or radiculopathy, thoracic region; M47.816 Spondylosis without myelopathy or radiculopathy, lumbar region; G43.909 Migraine, unspecified, not intractable, without status migrainosus; E55.9 Vitamin D deficiency, unspecified; I10 Essential (primary) hypertension; F32.A Depression, unspecified; F17.210 Nicotine dependence, cigarettes, uncomplicated; Z79.899 Other long term (current) drug therapy; Z88.2 Allergy status to sulfonamides; Z88.6 Allergy status to analgesic agent; Z88.8 Allergy status to other drugs, medicaments and biological substances

== ENCOUNTER → 2024-04-29 | Outpatient (CLI) | payer BC ==
[2024-04-29 17:24] LABS: BASO # 0.1 10^3/uL (0.0-0.2); BASO % 0.8 % (0.0-1.0); EOS # 0.2 10^3/uL (0.0-0.5); EOS % 2.8 % (0.0-3.0); HEMATOCRIT 38.8 % (36.0-47.0); HEMOGLOBIN 13.5 g/dl (12.0-15.5); LYMPH # 2.2 10^3/uL (1.5-5.0); LYMPH % 32.9 % (24.0-44.0); MEAN CORPUSCULAR HEMOGLOBIN 32.4 pg (27.0-33.0); MEAN CORPUSCULAR HGB CONC 34.8 g/dl (32.0-36.5); MONO # 0.7 10^3/uL (0.0-0.8); MONO % 10.4 % (2.0-8.0); NEUTROPHILS # 3.5 10^3/uL (1.5-8.5); NEUTROPHILS % 52.8 % (36.0-66.0); PLATELET COUNT, AUTOMATED 249 10^3/uL (150-450); RED BLOOD COUNT 4.17 10^6/uL (4.00-5.40); WHITE BLOOD COUNT 6.5 10^3/uL (4.0-10.0)
[2024-04-29 17:33] LABS: ERYTHROCYTE SEDIMENTATION RATE 52 mm/hr (0-20)
[2024-04-29 17:50] LABS: ALBUMIN 3.7 G/DL (3.2-5.2); ALKALINE PHOSPHATASE 134 U/L (46-116); ALT/SGPT 29 U/L (7.0-40); AST/SGOT 22 U/L (<34); BILIRUBIN,TOTAL 0.3 MG/DL (0.3-1.2); BLOOD UREA NITROGEN 7 MG/DL (9-23); CALCIUM LEVEL 9.3 MG/DL (8.5-10.1); CARBON DIOXIDE LEVEL 30 MMOL/L (20-31); CHLORIDE LEVEL 96 MMOL/L (98-107); GLOMERULAR FILTRATION RATE > 60.0 (>58); GLUCOSE, FASTING 123 MG/DL (60-100); POTASSIUM SERUM 4.2 MMOL/L (3.5-5.1); SODIUM LEVEL 128 MMOL/L (136-145); TOTAL PROTEIN 7.4 G/DL (5.7-8.2)
== END ==
LOC: M PLALAB 16:45
PROVIDERS: ATTEND Student in an Organized Health Care Education/Training Program
DX: M05.741 Rheumatoid arthritis with rheumatoid factor of right hand without organ or systems involvement (principal)

== ENCOUNTER → 2024-05-08 | Outpatient (CLI) | payer BC | LOC: M SOG 07:50 | PROVIDERS: ATTEND Physician Assistant | DX: M25.511 Pain in right shoulder (principal) ==

== ENCOUNTER → 2024-05-10 | Outpatient (CLI) | payer BC | LOC: M RAD 13:44 | PROVIDERS: ATTEND Physician Assistant | DX: R06.02 Shortness of breath (principal) ==

== ENCOUNTER → 2024-05-10 | Outpatient (REF) | payer BC | LOC: M LAB REF 14:23 | PROVIDERS: ATTEND Physician Assistant | DX: B34.9 Viral infection, unspecified (principal) ==

== ENCOUNTER 2024-05-11 22:48 | Emergency (ER) | payer BC ==
[~2024-05-11] VITALS: Ht 170.2 cm; Wt 64.8 kg
[2024-05-11 22:48] VITALS: BP 135/76; TEMP 97.8; O2SAT 93
== END 2024-05-12 00:50 | disposition left against medical advice (07) ==
LOC: M ED 22:48
DX: Z53.21 Procedure and treatment not carried out due to patient leaving prior to being seen by health care provider (principal)

== ENCOUNTER → 2024-06-20 | Outpatient (REF) | payer BC | LOC: M LAB REF 16:24 | PROVIDERS: ATTEND Physician Assistant | DX: Z79.899 Other long term (current) drug therapy (principal) ==

== ENCOUNTER → 2024-07-03 | Outpatient (REF) | LOC: M EMP 08:32 | PROVIDERS: ATTEND Family Medicine | DX: Z11.52 Encounter for screening for COVID-19 (principal) ==

== ENCOUNTER → 2024-07-04 | Outpatient (REF) | LOC: M EMP 10:06 | PROVIDERS: ATTEND Family Medicine | DX: Z11.52 Encounter for screening for COVID-19 (principal) ==

== ENCOUNTER 2024-09-07 14:06 | Emergency (ER) | payer BC ==
[~2024-09-07] VITALS: Ht 170.2 cm; Wt 63.6 kg
[2024-09-07] MEDS ORDERED: AMLO10CA30 (14:17)
[2024-09-07 15:02] LABS: HEMOGLOBIN 14.4 g/dl (12.0-15.5); MEAN CORPUSCULAR HEMOGLOBIN 33.3 pg (27.0-33.0); MEAN CORPUSCULAR HGB CONC 35.1 g/dl (32.0-36.5); MEAN CORPUSCULAR VOLUME 94.7 fl (80.0-96.0); PLATELET COUNT, AUTOMATED 207 10^3/uL (150-450); RED BLOOD COUNT 4.33 10^6/uL (4.00-5.40); WHITE BLOOD COUNT 6.7 10^3/uL (4.0-10.0)
[2024-09-07 15:34] LABS: AMPHETAMINES LEVEL URINE NEGATIVE (NEGATIVE); BARBITURATES URINE NEGATIVE (NEGATIVE); BENZODIAZEPINES URINE NEGATIVE (NEGATIVE); COCAINE METABOLITE URINE NEGATIVE (NEGATIVE)
[2024-09-07 15:35] LABS: CANNABINOIDS URINE NEGATIVE (NEGATIVE); METHADONE URINE NEGATIVE (NEGATIVE); OPIATES URINE NEGATIVE (NEGATIVE); PHENCYCLIDINE URINE NEGATIVE (NEGATIVE)
[2024-09-07 15:39] LABS: SALICYLATE LEVEL < 3.0 MG/DL (<30)
[2024-09-07 15:44] LABS: ALBUMIN 3.3 G/DL (3.2-5.2); ALKALINE PHOSPHATASE 134 U/L (35-104); ALT/SGPT 48 U/L (7.0-40); AST/SGOT 43 U/L (<34); BILIRUBIN,DIRECT < 0.1 MG/DL (<0.4); BILIRUBIN,TOTAL < 0.2 MG/DL (0.3-1.2); BLOOD UREA NITROGEN < 5 MG/DL (9-23); CARBON DIOXIDE LEVEL 22 MMOL/L (20-31); CHLORIDE LEVEL 100 MMOL/L (98-107); CREATININE FOR GFR 0.43 MG/DL (0.55-1.30); GLOMERULAR FILTRATION RATE > 60.0 (>58); GLUCOSE, FASTING 114 MG/DL (60-100); POTASSIUM SERUM 3.6 MMOL/L (3.5-5.1); SODIUM LEVEL 133 MMOL/L (136-145); THYROID STIMULATING HORMONE 1.035 uIU/ML (0.55-4.78); TOTAL PROTEIN 7.4 G/DL (5.7-8.2)
[2024-09-07 16:50] VITALS: BP 132/72; TEMP 98.3; O2SAT 98
== END 2024-09-07 19:25 | disposition home or self-care (01) ==
LOC: M ED 14:06
DX: F32.A Depression, unspecified (principal); F10.120 Alcohol abuse with intoxication, uncomplicated; F41.9 Anxiety disorder, unspecified; Z88.2 Allergy status to sulfonamides; Z88.8 Allergy status to other drugs, medicaments and biological substances; Z79.1 Long term (current) use of non-steroidal anti-inflammatories (NSAID); Z79.899 Other long term (current) drug therapy

== ENCOUNTER → 2024-12-30 | Outpatient (CLI) | payer BC, MEDICAID, OTHER ==
[~2024-12-30] MED LIST changes: +AMLO10CA30
[2024-12-30 13:28] LABS: HEMATOCRIT 37.4 % (36.0-47.0); HEMOGLOBIN 12.3 g/dl (12.0-15.5); MEAN CORPUSCULAR HEMOGLOBIN 27.8 pg (27.0-33.0); MEAN CORPUSCULAR HGB CONC 32.9 g/dl (32.0-36.5); MEAN CORPUSCULAR VOLUME 84.6 fl (80.0-96.0); PLATELET COUNT, AUTOMATED 145 10^3/uL (150-450); RED BLOOD COUNT 4.42 10^6/uL (4.00-5.40)
[2024-12-30 13:56] LABS: BLOOD UREA NITROGEN 11 MG/DL (9-23); CALCIUM LEVEL 8.6 MG/DL (8.5-10.1); CARBON DIOXIDE LEVEL 28 MMOL/L (20-31); CHLORIDE LEVEL 92 MMOL/L (98-107); CREATININE FOR GFR 0.53 MG/DL (0.55-1.30); GLOMERULAR FILTRATION RATE > 90.0 (>58); GLUCOSE, FASTING 97 MG/DL (60-100); MAGNESIUM LEVEL 1.7 MG/DL (1.8-2.4); POTASSIUM SERUM 3.6 MMOL/L (3.5-5.1); SODIUM LEVEL 126 MMOL/L (136-145)
[2024-12-30 13:57] LABS: FREE T4 0.93 NG/DL (0.89-1.76); THYROID STIMULATING HORMONE 1.778 uIU/ML (0.55-4.78)
== END ==
LOC: M RAD 12:39
PROVIDERS: ATTEND Physician Assistant
DX: R07.9 Chest pain, unspecified (principal)

== ENCOUNTER → 2025-04-07 | Outpatient (CLI) | payer MEDICAID, OTHER | LOC: M WHC 12:37 | PROVIDERS: ATTEND Nurse Practitioner Family | DX: Z12.31 Encounter for screening mammogram for malignant neoplasm of breast (principal); M81.0 Age-related osteoporosis without current pathological fracture ==

== ENCOUNTER → 2025-04-15 | Outpatient (CLI) | payer OTHER | LOC: M SOG 06:47 | PROVIDERS: ATTEND Orthopaedic Surgery | DX: S86.012A Strain of left Achilles tendon, initial encounter (principal) ==

== ENCOUNTER → 2025-04-15 | Outpatient (CLI) | payer OTHER | LOC: M RAD 12:57 | PROVIDERS: ATTEND Orthopaedic Surgery | DX: M76.62 Achilles tendinitis, left leg (principal); M77.32 Calcaneal spur, left foot ==

== ENCOUNTER → 2025-04-16 | Outpatient (CLI) | payer OTHER | LOC: M PLARAD 13:46 | PROVIDERS: ATTEND Orthopaedic Surgery | DX: M76.62 Achilles tendinitis, left leg (principal) ==

== ENCOUNTER → 2025-05-04 | Outpatient (REF) | payer OTHER, MEDICAID ==
[~2025-05-04] MED LIST changes: -IBUP-1022 PO; +IBUP600T42 PO
[2025-05-04 12:59] LABS: BASO # 0.1 10^3/uL (0.0-0.2); BASO % 0.9 % (0.0-1.0); EOS # 0.2 10^3/uL (0.0-0.5); EOS % 3.1 % (0.0-3.0); LYMPH # 2.1 10^3/uL (1.5-5.0); LYMPH % 30.6 % (24.0-44.0); MONO # 0.7 10^3/uL (0.0-0.8); MONO % 10.9 % (2.0-8.0); NEUTROPHILS # 3.7 10^3/uL (1.5-8.5); NEUTROPHILS % 54.4 % (36.0-66.0); PLATELET COUNT, AUTOMATED 225 10^3/uL (150-450)
[2025-05-04 13:01] LABS: ALT/SGPT 15 U/L (7.0-40); AST/SGOT 17 U/L (<34); CALCIUM LEVEL 9.7 MG/DL (8.5-10.1); CARBON DIOXIDE LEVEL 28 MMOL/L (20-31); CHLORIDE LEVEL 103 MMOL/L (98-107); CHOLESTEROL LEVEL 228 MG/DL (<200); CHOLESTEROL RISK RATIO 5.65 (<5); CREATININE FOR GFR 0.59 MG/DL (0.55-1.30); GLOMERULAR FILTRATION RATE > 90.0 (>58); MAGNESIUM LEVEL 1.9 MG/DL (1.8-2.4); NON-HDL-C 187.7 MG/DL; POTASSIUM SERUM 5.0 MMOL/L (3.5-5.1); SODIUM LEVEL 136 MMOL/L (136-145); TRIGLYCERIDES LEVEL 437 MG/DL (<150)
[2025-05-04 13:02] LABS: TOTAL 25(OH) VITAMIN D 48.2 NG/ML (20.0-100.0)
== END ==
LOC: M LAB REF 11:51
PROVIDERS: ATTEND Nurse Practitioner Family
DX: I10 Essential (primary) hypertension (principal); E04.9 Nontoxic goiter, unspecified; E55.9 Vitamin D deficiency, unspecified

== ENCOUNTER → 2025-05-08 | Outpatient (REF) | payer OTHER, MEDICAID ==
[2025-05-13 14:33] LABS: HPV APTIMA Not Detected (Not Detected)
== END ==
LOC: M LAB REF 17:23
PROVIDERS: ATTEND Nurse Practitioner Family
DX: Z12.4 Encounter for screening for malignant neoplasm of cervix (principal)

== ENCOUNTER 2025-06-08 09:47 | Outpatient (RCR) | payer OTHER | END 2025-06-09 | LOC: M PT 09:47 | PROVIDERS: ATTEND Orthopaedic Surgery | DX: M76.62 Achilles tendinitis, left leg (principal) ==

== ENCOUNTER 2025-07-02 07:00 | Outpatient (RCR) | payer OTHER | END 2025-07-10 | LOC: M PT 07:00 | PROVIDERS: ATTEND Orthopaedic Surgery | DX: M76.62 Achilles tendinitis, left leg (principal) ==

== ENCOUNTER → 2025-08-26 | Outpatient (REF) ==
[~2025-08-26] MED LIST changes: -LABE100T6 PO; +LABE100T91 PO
[2025-08-26 13:27] LABS: SOFIA COVID ANTIGEN POSITIVE (NEGATIVE)
== END ==
LOC: M EMP 12:26
PROVIDERS: ATTEND Family Medicine
DX: Z01.89 Encounter for other specified special examinations (principal)

== ENCOUNTER → 2025-09-01 | Outpatient (REF) | payer OTHER | LOC: M LAB REF 17:09 | PROVIDERS: ATTEND Physician Assistant Medical | DX: B34.9 Viral infection, unspecified (principal) ==

== ENCOUNTER → 2025-09-08 | Outpatient (CLI) | payer OTHER | LOC: M SOG 07:33 | PROVIDERS: ATTEND Orthopaedic Surgery | DX: M76.62 Achilles tendinitis, left leg (principal); S86.012A Strain of left Achilles tendon, initial encounter; M25.572 Pain in left ankle and joints of left foot ==